=== PATIENT | male | born 1955 | race Caucasian/White ===

== ENCOUNTER 2016-12-10 06:07 | Inpatient (IN) | payer OTHER ==
[2016-12-09 13:03] VITALS: BMI 20.9
[2016-12-10] MEDS ORDERED: INSULIN (NOVOLOG) ASPART 100 UNITS/ML 10ML VIAL SQ ONE (07:10)
[2016-12-10] MEDS ORDERED: HEPARIN NA (PORCINE) 5,000 UNITS/ML 1ML VIAL ONE ×2 (07:42→10:35)
[2016-12-10] MEDS ORDERED: POVIDONE-IODINE OINTMENT 10% - 28.4 GM TUBE ONE (07:42)
[2016-12-10] MEDS ORDERED: MIDAZOLAM HCL 2 MG/2 ML SINGLE DOSE VIAL ONE (07:56)
[2016-12-10] MEDS ORDERED: ROCURONIUM BROMIDE 50 MG/5 ML VIAL ONE ×2 (07:56→08:53)
[2016-12-10] MEDS ORDERED: PROPOFOL 20 ML ONE ×2 (07:56→10:25)
[2016-12-10] MEDS ORDERED: ceFAZolin SODIUM 1 GM VIAL IVPB ONE (08:20)
[2016-12-10] MEDS ORDERED: ceFAZolin SODIUM 1 GM VIAL ONE (08:43)
[2016-12-10] MEDS ORDERED: ONDANSETRON 4 MG/2 ML VIAL IVPUSH PRN (09:49)
[2016-12-10] MEDS ORDERED: LACTATED RINGERS SOLUTION 1,000 ML IV SCH (10:00)
[2016-12-10] MEDS ORDERED: GLYCOPYRROLATE 0.2 MG/1 ML VIAL ONE (10:35)
[2016-12-10] MEDS ORDERED: LIDOCAINE HCL 2% (20ML MULTI-DOSE VIAL) NR ONE (10:35)
[2016-12-10] MEDS ORDERED: NEOSTIGMINE METHYLSULFATE 0.5 MG/ML - 10 ML MDV ONE (10:35)
[2016-12-10] MEDS ORDERED: LIDOCAINE HCL 2% JELLY (5 ML/TUBE) ONE (10:35)
--- NOTE | 2016-12-10 10:52 | HP ---
Admitting History and Physical - Admission Chief Complaint: left carotid stenosis - Smoking History Smoking history: Current every day smoker Have you smoked in the past 12 months: Yes Aproximately how many cigarettes per day: 20 - Alcohol/Substance Use Hx Alcohol Use: Yes (SOCIALLY) Home Medications - Allergies Allergies/Adverse Reactions: Allergies Allergy/AdvReac Type Severity Reaction Status Date / Time No Known Allergies Allergy Verified 12/10/16 06:40 - Home Medications Home Medications: Ambulatory Orders Omeprazole [Prilosec] 40 mg PO DAILY 07/04/15 Tamsulosin HCl [Flomax] 0.4 mg PO DAILY 07/04/15 Finasteride [Proscar] 5 mg PO HS 02/15/16 Zolpidem Tartrate [Ambien] 10 mg PO HS 02/15/16 Aspirin Coated [Ecotrin -] 81 mg PO DAILY 12/09/16 Atorvastatin Ca [Lipitor] 80 mg PO HS 12/09/16 Enalapril Maleate [Vasotec] 20 mg PO HS 12/09/16 Gabapentin 300 mg PO TID 12/09/16 Ibuprofen 800 mg PO PRN PRN 12/09/16 Insulin Detemir [Levemir Flextouch] 20 unit SQ HS 12/09/16 Metformin HCl [Metformin HCl ER] 1,000 mg PO BID 12/09/16 Physical Examination Vital Signs: Vital Signs Temperature 98.0 F 12/10/16 06:43 Pulse Rate 82 12/10/16 06:43 Respiratory Rate 18 12/10/16 06:43 Blood Pressure 117/80 12/10/16 06:43 O2 Sat by Pulse Oximetry (%) 97 12/10/16 06:43 Constitutional: Yes: Well Nourished Eyes: Yes: WNL HENT: Yes: WNL Neck: Yes: WNL Cardiovascular: Yes: WNL Respiratory: Yes: WNL Gastrointestinal: Yes: WNL Musculoskeletal: Yes: WNL Extremities: Yes: WNL Edema: No Peripheral Pulses WNL: Yes Integumentary: Yes: WNL Neurological: Yes: WNL ...Motor Strength: WNL Psychiatric: Yes: WNL Assessment/Plan Left carotid stenosis 80% 1. For left carotidendarterectomy
--- NOTE | 2016-12-10 10:54 | OP ---
Operative Note - Note: Operative Date: 12/10/16 Pre-Operative Diagnosis: Left carotid stenosis Operation: Left CEA Findings: 80% percent stenosis of left CEA Post-Operative Diagnosis: Same as Pre-op Surgeon: Joe Tamez Dispatch Specialist: Sai Lizama Anesthesia: General Estimated Blood Loss (mls): 50 Operative Report Dictated: Yes
[2016-12-10] MEDS: CLOPIDOGREL BISULFATE 75 MG TABLET (FP) PO SCH (12:35)
--- NOTE | 2016-12-10 14:45 | OP ---
DATE OF OPERATION: 12/10/2016 PREOPERATIVE DIAGNOSIS: Left carotid stenosis. POSTOPERATIVE DIAGNOSIS: Left carotid stenosis. PROCEDURE: Left carotid endarterectomy. SURGEON: Joe Fernandez DO ANESTHESIA: General. BLOOD LOSS: 50 mL The patient is a 60-year-old male who had a preoperative ultrasound that showed an 80% stenosis in the left carotid artery. He then went to see his medical doctor and got medical and cardiology clearance because the patient needed a left carotid endarterectomy. Patient was asymptomatic and did not have any signs of amaurosis fugax and was medically optimized prior to the procedure. Patient is a [id number]-day smoker which is why he has the carotid stenosis, and he has been weaning down his cigarette use. Patient came into Ambulatory Surgery. Patient was consented for the procedure, understanding all risks, benefits, and alternatives. He was then taken to the operating room. Anesthesia then administered general anesthesia to the patient. We then placed a neck roll behind the neck, and the neck was hyperextended and turned to the right. Under ultrasound guidance, we did visualize the carotid bulb and the bifurcation, and that was marked the superior border of the sternocleidomastoid, and a 5-cm incision was then drawn through there. We then went ahead and prepped and draped the neck in sterile surgical manner. We then went ahead and used a number-15 blade, and a 7-cm incision was drawn. A separate incision was made along the anterior border of the sternocleidomastoid. Bovie electrocautery used to control hemostasis. Using Bovie electrocautery, we were particular to go through the platysma and then the subcutaneous tissue. We then took our Weitlaner clamp and placed the sternocleidomastoid posteriorly. We then went ahead and using Metzenbaum scissors, we went through all the subcutaneous tissue and got down to the common carotid artery. Once we got down to the common carotid artery, we stayed on top of the artery and dissected out the common carotid artery. We made sure that we did not enter the vagus nerve. We then dissected anteriorly and posteriorly, and vessel loop was placed around the common carotid artery. We then went ahead and went superiorly and dissected out the bulb of the carotid artery, and we were able to dissect out our external carotid artery anteriorly and posteriorly. We visualized our first branch which was the superior thyroid artery. We then went ahead and placed our vessel loop around the external carotid artery and the superior artery. We then went ahead and dissected out our internal carotid artery, making sure that we did not injure the hypoglossal nerve. Internal carotid artery was dissected anteriorly and posteriorly, and vessel loop was placed distally. Next, 5000 units of heparin were then administered to the patient. After 3 minutes of being on IV heparin, we went ahead and clamped the ICA first, then the common carotid, then the ECA. We then went ahead and took a number-11 blade and made an arteriotomy on the common carotid artery, and then, using Hinds scissors, we were able to take that incision across the bulb and into the ICA. Once we did that, we used a [place] elevator and the plaque was removed and sent to Pathology. We made sure that there were no flaps. We were able to take all of the debris and plaque out all the way as high as we could. We then went ahead and irrigated the wound cautiously. We then went ahead and used a 6-0 Prolene double arm and tacked down any area of plaque that was loose. Prior to taking out the plaque, we had opened our ICA, and there was good pulsatile bleeding. So, there was no need for a shunt. We then went ahead and used an 8 x 75 Vascutek patch and using 6-0 Prolene double-arm, we went ahead and went outside-in on the graft and inside-out on the artery and we were able to tie down the patch. We then went ahead, and we cut the patch to size and was sutured the patch to the artery going outside in on the patch and inside-out on the artery in 4 quadrants. Once all 4 quadrants were done, we tied the 10 sutures on each side of the artery. Once the patch was tied down, we then opened our internal carotid artery, and there was no bleeding found. We then clamped the internal carotid artery. We then opened the external carotid artery and then opened the common carotid artery. Once that was performed and it was safe, we then opened the internal carotid artery. There was minimal bleeding. The wound was well irrigated. Surgicel was placed. WE then made sure that there was no bleeding from the subcutaneous muscle. Once there was no more bleeding, we then went ahead and used our Doppler, and we Dopplered the common carotid, the external carotid, and the internal carotid, and there was good signals, that were biphasic to triphasic. We then went ahead and used 3-0 Vicryl and the platysma also was approximated in an interrupted manner and the skin was closed with skin viry. The area was wet and dried; 4 x 4 Tegaderms were placed. The patient tolerated the procedure with no complication. Patient transferred back in stable condition. Once patient was extubated, patient was able to move all 4 limbs with no issues. Patient did not have any neurological deficits. The patient stuck out his tongue and the tongue was nice and straight. There was no damage to the hypoglossal nerve. The patient was then transferred to PACU in stable condition. JOE FERNANDEZ DO [id number]
[2016-12-10] MEDS: GABAPENTIN 300 MG CAPSULE (FP) PO SCH ×2 (15:20→21:05)
--- NOTE | 2016-12-10 17:01 | HP ---
Admitting History and Physical - Primary Care Physician PCP: Augustine Douglas - Admission Chief Complaint: S/P LEFT ENDARCTOMY History of Present Illness: 60 Y/O MALE SMOKER WITH HTN/LIPIDEMIA/DM WITH LEFT CAROTID ARTERY OCCLUSION 80% NEEDING VASCULAR SURGERY FOR ENDARTECTOMY History Source: Patient, Medical Record - Smoking History Smoking history: Current every day smoker Have you smoked in the past 12 months: Yes Aproximately how many cigarettes per day: 20 - Alcohol/Substance Use Hx Alcohol Use: Yes (SOCIALLY) Home Medications - Allergies Allergies/Adverse Reactions: Allergies Allergy/AdvReac Type Severity Reaction Status Date / Time No Known Allergies Allergy Verified 12/10/16 06:40 - Home Medications Home Medications: Ambulatory Orders Omeprazole [Prilosec] 40 mg PO DAILY 07/04/15 Tamsulosin HCl [Flomax] 0.4 mg PO DAILY 07/04/15 Finasteride [Proscar] 5 mg PO HS 02/15/16 Zolpidem Tartrate [Ambien] 10 mg PO HS 02/15/16 Aspirin Coated [Ecotrin -] 81 mg PO DAILY 12/09/16 Atorvastatin Ca [Lipitor] 80 mg PO HS 12/09/16 Enalapril Maleate [Vasotec] 20 mg PO HS 12/09/16 Gabapentin 300 mg PO TID 12/09/16 Ibuprofen 800 mg PO PRN PRN 12/09/16 Insulin Detemir [Levemir Flextouch] 20 unit SQ HS 12/09/16 Metformin HCl [Metformin HCl ER] 1,000 mg PO BID 12/09/16 Review of Systems - Review of Systems Constitutional: reports: No Symptoms Eyes: reports: No Symptoms HENT: reports: Throat Pain Neck: reports: No Symptoms Cardiovascular: reports: No Symptoms Respiratory: reports: Cough Gastrointestinal: reports: No Symptoms Genitourinary: reports: No Symptoms Musculoskeletal: reports: No Symptoms Integumentary: reports: No Symptoms Neurological: reports: No Symptoms Endocrine: reports: No Symptoms Hematology/Lymphatic: reports: No Symptoms Psychiatric: reports: No Symptoms Physical Examination Vital Signs: Vital Signs Temperature 99.4 F 12/10/16 16:00 Pulse Rate 82 12/10/16 16:00 Respiratory Rate 20 12/10/16 16:00 Blood Pressure 134/82 12/10/16 16:00 O2 Sat by Pulse Oximetry (%) 100 12/10/16 15:47 Constitutional: Yes: Moderate Distress Eyes: Yes: WNL HENT: Yes: WNL Neck: Yes: WNL Cardiovascular: Yes: WNL Respiratory: Yes: WNL Gastrointestinal: Yes: WNL Renal/: Yes: WNL Musculoskeletal: Yes: WNL Extremities: Yes: WNL Edema: No Peripheral Pulses WNL: Yes Integumentary: Yes: WNL Wound/Incision: Yes: Clean/Dry Neurological: Yes: WNL ...Motor Strength: WNL Psychiatric: Yes: WNL Problem List - Problems (1) H/O endarterectomy Code(s): Z98.890 - OTHER SPECIFIED POSTPROCEDURAL STATES (2) DMII (diabetes mellitus, type 2) Code(s): E11.9 - TYPE 2 DIABETES MELLITUS WITHOUT COMPLICATIONS Qualifiers: Diabetes mellitus complication status: with circulatory complication (3) Lipidemia Code(s): E78.5 - HYPERLIPIDEMIA, UNSPECIFIED Qualifiers: Hyperlipidemia type: mixed hyperlipidemia Qualified Code(s): E78.2 - Mixed hyperlipidemia (4) HTN (hypertension) Code(s): I10 - ESSENTIAL (PRIMARY) HYPERTENSION Qualifiers: Hypertension type: essential hypertension Qualified Code(s): I10 - Essential (primary) hypertension (5) Smoking hx Code(s): Z87.891 - PERSONAL HISTORY OF NICOTINE DEPENDENCE Assessment/Plan MONITOR IN ICU LIPID PANEL AND STATIN THERAPY A1C TIGHT GLUCOS CONTROL LABS REVIEWED SMOKING CESSATION LOZINGERS FOR THROAT PAIN POST EXTUBATION LIKELY
[2016-12-10] MEDS ORDERED: BENZOCAINE/MENTH/CETYLPYRD CL 1 EACH LOZENGE MM PRN (17:02)
--- NOTE | 2016-12-10 19:00 | PN ---
Progress Note (short form) - Note Progress Note: Patient seen and examined in the ICU S/p left carotid endarterectomy. Patient was eating dinner with no complaints. Pain controlled. Neuro: A&ox3 Pulmonary: lungs clear to auscultation b/l, no increased work of breathing Cardio: RRR s1,s2 heard no murmurs, gallops, rubs heard Abdominal: soft, nontender, nondistended will monitor in ICU cepachol for sore throat
[2016-12-10] MEDS ORDERED: ENALAPRIL MALEATE 10 MG TABLET (FP) PO ONE (20:15)
--- NOTE | 2016-12-10 20:35 | CONSULT ---
Consult - text type - Consultation Consultation Note: PULM/CCM Pt seen and examined in ICU CC: For endarterectomy HPI: Mr Chavez is a 60 y/o man, 2pack a day smoker with hx of HTN, HL, DM presented today for scheduled L carotid endartectomy, uneventful OR course, extubated in PACU. Admitted to PACU for overnight observation. In ICU pt extubated, pain largely controlled, afebrile, no distress. Hypertensive---> vasotec home dose given. PMHX: HTN HL DM PSH: hernia repair last year Soc: works as entertainer, 2 pack/day smoker x 5 years (19 abstinence prior), no illicits Fam: Father CAD, Mother Fall, Sister Lung CA. Ambulatory Orders Omeprazole [Prilosec] 40 mg PO DAILY 07/04/15 Tamsulosin HCl [Flomax] 0.4 mg PO DAILY 07/04/15 Finasteride [Proscar] 5 mg PO HS 02/15/16 Zolpidem Tartrate [Ambien] 10 mg PO HS 02/15/16 Aspirin Coated [Ecotrin -] 81 mg PO DAILY 12/09/16 Atorvastatin Ca [Lipitor] 80 mg PO HS 12/09/16 Enalapril Maleate [Vasotec] 20 mg PO HS 12/09/16 Gabapentin 300 mg PO TID 12/09/16 Ibuprofen 800 mg PO PRN PRN 12/09/16 Insulin Detemir [Levemir Flextouch] 20 unit SQ HS 12/09/16 Metformin HCl [Metformin HCl ER] 1,000 mg PO BID 12/09/16 Current Medications Aspirin (Ecotrin -) 81 mg PO DAILY [facility] Atorvastatin Calcium (Lipitor -) 80 mg PO HS [facility] Benzocaine/Menthol (Cepacol Lozenge -) 1 each MM Q2H PRN PRN Reason: SORE THROAT Stop: 12/11/16 03:03 Last Admin: 12/10/16 19:50 Dose: 1 each Clopidogrel Bisulfate (Plavix -) 75 mg PO DAILY [facility] Last Admin: 12/10/16 12:35 Dose: 75 mg Enalapril Maleate (Vasotec -) 20 mg PO HS [facility] Fentanyl (Sublimaze Injection -) 50 mcg IVPUSH [id number] PRN PRN Reason: PAIN Stop: 12/13/16 09:50 Last Admin: 12/10/16 12:45 Dose: 25 mcg Finasteride (Proscar -) 5 mg PO DAILY [facility] Gabapentin (Neurontin -) 300 mg PO TID [facility] Last Admin: 12/10/16 15:20 Dose: 300 mg Insulin Aspart (Novolog Vial Sliding Scale -) 1 vial SQ ACHS [facility] PRN Reason: Protocol Insulin Detemir (Levemir Vial) 20 units SQ HS [facility] Metformin HCl (Glucophage -) 1,000 mg PO BID@0700,1630 [facility] Nicotine (Nicoderm Patch -) 21 mg TD DAILY [facility] Tamsulosin HCl (Flomax -) 0.4 mg PO DAILY@0830 [facility] Wellbutrin 150mg BID Vital Signs Temp 99.4 F 12/10/16 16:00 Pulse 87 12/10/16 20:00 Resp 16 12/10/16 20:00 BP 153/86 12/10/16 20:00 Pulse Ox 100 12/10/16 15:47 Intake & Output 12/09/16 12/10/16 12/10/16 23:59 11:59 23:59 Intake Total 1700 150 Output Total 50 100 Balance 1650 50 Weight 58.967 kg Intake: IV 1700 150 Lactated Ringers Solution 150 1,000 ml @ 75 mls/hr IV ASDIR [facility] Rx#:[id number] Output: Urine 100 Void 100 Estimated Blood Loss 50 Other: Bowel Movement No Height 5 ft 6 in Body Mass Index (BMI) 20.9 Weight Measurement Method Stated by Patient PE: -awake alert, without acute complaint HEENT: surgical site dressed, minimal swelling, PERRL PULM: clear anterior CV: RRR , no mr/r/g ABD: soft, NT EXT: w/w/p Neuro: non focal, intact A/ 60 y/o man POD #0 after L CEA overnight observation P/ -pain control--low dose dilaudid now, transition to PO in am -BP management, restarting vasotec now -restart other meds in am -nicotine patch---wants to quite smoking, restart wellbutrin. -fingersticks -regular diet -to medsurg in am if stable Sonny Wiley [facility] [id number]
[2016-12-10] MEDS ORDERED: HYDROmorphone HCL CARPU-JECT 1 MG/1 ML DISP.SYRIN IVPUSH ONE (20:36)
[2016-12-10] MEDS ORDERED: HYDROmorphone HCL CARPU-JECT 1 MG/1 ML DISP.SYRIN ONE (20:37)
[2016-12-10] MEDS: NICOTINE 21 MG/24 HOURS TOPICAL PATCH TD SCH (20:49)
[2016-12-10] MEDS: INSULIN SLIDING SCALE (NOVOLOG) 1 VIAL SQ SCH (21:10)
[2016-12-10] MEDS ORDERED: INSULIN DETEMIR 100 UNITS/ML MDV SQ SCH (22:00)
[2016-12-10] MEDS ORDERED: ATORVASTATIN CA 80 MG TABLET (FP) PO SCH (22:00)
[2016-12-11] MEDS: oxyCODONE HCL 5 MG TABLET PO PRN ×2 (05:31→15:52)
[2016-12-11] MEDS: ACETAMINOPHEN 325 MG TABLET (FP) PO PRN ×2 (05:31→15:52)
[2016-12-11] MEDS: GABAPENTIN 300 MG CAPSULE (FP) PO SCH ×3 (05:31→22:38)
[2016-12-11] MEDS: INSULIN SLIDING SCALE (NOVOLOG) 1 VIAL SQ SCH ×4 (06:10→22:39)
[2016-12-11 06:33] LABS: MCHC 34.5 g/dl (32.0-35.9); MEAN CELL VOLUME 89.8 fl (80-96); MEAN PLT VOLUME 9.2 fl (7.5-11.1); PLATELET COUNT 220 K/MM3 (134-434); RDW 13.6 % (11.9-15.9); WHITE BLOOD COUNT 16.3 K/mm3 (4.0-10.0)
[2016-12-11] MEDS: metFORMIN HCL 500 MG TABLET (FP) PO SCH ×2 (06:42→18:13)
[2016-12-11 06:57] LABS: ALBUMIN 3.3 g/dl (3.4-5.0); ANION GAP 6 (8-16); CALCIUM 8.6 mg/dL (8.5-10.1); CHOLESTEROL 96 mg/dL (50-200); CO2 29 mmol/L (21-32); CREATININE 0.7 mg/dL (0.7-1.3); GLUCOSE,RANDOM 108 mg/dL (74-106); MAGNESIUM 1.5 mg/dL (1.8-2.4); PHOSPHOROUS 3.3 mg/dL (2.5-4.9); SGOT/AST 6 U/L (15-37); SGPT/ALT 19 U/L (12-78); TOT PROT 6.1 g/dl (6.4-8.2)
[2016-12-11 06:59] LABS: ALK PHOS 77 U/L (45-117); BILIRUBIN,TOTAL 0.4 mg/dL (0.2-1.0); LDL CHOLESTEROL (ONLY SJRH) 38 mg/dL (5-100)
[2016-12-11] MEDS ORDERED: TAMSULOSIN HCL 0.4 MG CAP.ER.24H (FP) PO SCH (08:30)
[2016-12-11] MEDS ORDERED: PT OWN MED DRAWER 7, Y5N ONE ×2 (09:02→17:38)
[2016-12-11] MEDS: NICOTINE 21 MG/24 HOURS TOPICAL PATCH TD SCH (09:14)
[2016-12-11] MEDS: CLOPIDOGREL BISULFATE 75 MG TABLET (FP) PO SCH (09:14)
--- NOTE | 2016-12-11 09:31 | PN ---
Progress Note (short form) - Note Progress Note: Vascular Surgery S/P Left CEA [place]ing removed. Staple line - clean , dry and intact. Cont plavix Will need to go home on plavix. Can transfer to floor Joe Tamez DO
--- NOTE | 2016-12-11 09:36 | PN ---
Teaching Attending Note Name of Resident: Charles Baptiste ATTENDING PHYSICIAN STATEMENT I saw and evaluated the patient. I reviewed the resident's note and discussed the case with the resident. I agree with the resident's findings and plan as documented. SUBJECTIVE: Reports some sore throat. No or SOB. Some minimal discomfort at the surgical site. Intake & Output 12/08/16 12/09/16 12/10/16 12/11/16 23:59 23:59 23:59 23:59 Intake Total 2050 300 Output Total 1150 1300 Balance 900 -1000 Weight 130 lb 130 lb 15.273 oz Last Vital Signs Temp Pulse Resp BP Pulse Ox 99.4 F 91 H 18 124/77 96 12/11/16 06:00 12/11/16 06:38 12/11/16 06:00 12/11/16 06:00 12/11/16 06:38 Active Medications Acetaminophen (Tylenol -) 325 mg PO Q4H PRN PRN Reason: PAIN LEVEL 1-5 Stop: 12/13/16 20:39 Last Admin: 12/11/16 05:31 Dose: 325 mg Aspirin (Ecotrin -) 81 mg PO DAILY [facility] Last Admin: 12/11/16 09:14 Dose: 81 mg Atorvastatin Calcium (Lipitor -) 80 mg PO HS [facility] Last Admin: 12/10/16 21:05 Dose: 80 mg Clopidogrel Bisulfate (Plavix -) 75 mg PO DAILY [facility] Last Admin: 12/11/16 09:14 Dose: 75 mg Enalapril Maleate (Vasotec -) 20 mg PO HS [facility] Fentanyl (Sublimaze Injection -) 50 mcg IVPUSH [id number] PRN PRN Reason: PAIN Stop: 12/13/16 09:50 Last Admin: 12/10/16 12:45 Dose: 25 mcg Finasteride (Proscar -) 5 mg PO DAILY [facility] Gabapentin (Neurontin -) 300 mg PO TID [facility] Last Admin: 12/11/16 05:31 Dose: 300 mg Insulin Aspart (Novolog Vial Sliding Scale -) 1 vial SQ [facility] PRN Reason: Protocol Last Admin: 12/11/16 06:10 Dose: Not Given Insulin Detemir (Levemir Vial) 20 units SQ HS [facility] Last Admin: 12/10/16 21:09 Dose: 20 units Metformin HCl (Glucophage -) 1,000 mg PO BID@0700,1630 [facility] Last Admin: 12/11/16 06:42 Dose: 1,000 mg Nicotine (Nicoderm Patch -) 21 mg TD DAILY [facility] Last Admin: 12/11/16 09:14 Dose: 21 mg Oxycodone HCl (Roxicodone -) 5 mg PO Q4H PRN PRN Reason: PAIN LEVEL 1-5 Last Admin: 12/11/16 05:31 Dose: 5 mg Tamsulosin HCl (Flomax -) 0.4 mg PO DAILY@0830 [facility] Last Admin: 12/11/16 09:14 Dose: 0.4 mg PE: Gen: awake alert, without acute complaint HEENT: surgical site dressed, minimal swelling, PERRL PULM: clear anterior CV: RRR , no mr/r/g ABD: soft, NT EXT: w/w/p Neuro: non focal, intact IMP: POD # 1 Left CEA Active 2 to 3 PPD smoker PLAN: Incentive Spirometry O2 as needed Smoking cessation discussed Pain control Titrate BP meds Trial nicotine patch / Wellbutrin PO as tolerated Floor Dr Trinidad
[2016-12-11] MEDS ORDERED: ASPIRIN COATED 81 MG TABLET.EC PO SCH (10:00)
[2016-12-11] MEDS ORDERED: ENALAPRIL MALEATE 10 MG TABLET (FP) PO SCH ×3 (10:00→22:00)
[2016-12-11] MEDS ORDERED: FINASTERIDE 5 MG TABLET (FP) PO SCH (10:00)
--- NOTE | 2016-12-11 10:06 | PN ---
Physical Exam: SUBJECTIVE: Patient s/p L carotid endarterectomy. Seen and examined at bedside. Patient states that he has discomfort in his throat and coughs brown phlegm. A little discomfort near incision site. Denies chest pain, SOB, n/v/f/c. OBJECTIVE: Vital Signs Period Temp Pulse Resp BP Sys/Florez Pulse Ox Last 24 Hr 97 F-99.7 F 75-101 10-20 15-155/40-92 94-100 GENERAL: The patient is awake, alert, and fully oriented, in no acute distress. HEAD: Normal with no signs of trauma. EYES: PERRL, extraocular movements intact, sclera anicteric, conjunctiva clear. No ptosis. ENT: Ears normal, nares patent, oropharynx clear without exudates, moist mucous membranes. NECK: Trachea midline, full range of motion, supple, surgical dressing on L side of neck noted without drainage LUNGS: Breath sounds equal, clear to auscultation bilaterally, no wheezes, no crackles, no accessory muscle use. HEART: Regular rate and rhythm, S1, S2 without murmur, rub or gallop. ABDOMEN: Soft, nontender, nondistended, normoactive bowel sounds, no guarding, no rebound, no hepatosplenomegaly, no masses. EXTREMITIES: 2+ pulses, warm, well-perfused, no edema. NEUROLOGICAL: Cranial nerves II through XII grossly intact. Normal speech, gait not observed. PSYCH: Normal mood, normal affect. SKIN: Warm, dry, normal turgor, no rashes or lesions noted Laboratory Results - last 24 hr 12/10/16 12/11/16 12/11/16 21:08 05:20 05:20 WBC 16.3 H RBC 3.98 L Hgb 12.3 D Hct 35.7 D MCV 89.8 MCH 31.0 MCHC 34.5 RDW 13.6 Plt Count 220 D MPV 9.2 Sodium 139 Potassium 3.8 Chloride 104 Carbon Dioxide 29 D Anion Gap 6 L BUN 11 D Creatinine 0.7 D Creat Clearance w eGFR > 60 POC Glucometer [phone] Random Glucose 108 H D Hemoglobin A1c % Calcium 8.6 Phosphorus 3.3 Magnesium 1.5 L Total Bilirubin 0.4 AST 6 L D ALT 19 D Alkaline Phosphatase 77 Total Protein 6.1 L Albumin 3.3 L Triglycerides 137 Cholesterol 96 Total LDL Cholesterol 38 HDL Cholesterol 38 L 08/16/17 08/16/17 05:20 05:27 WBC RBC Hgb Hct MCV MCH MCHC RDW Plt Count MPV Sodium Potassium Chloride Carbon Dioxide Anion Gap BUN Creatinine Creat Clearance w eGFR POC Glucometer [phone] Random Glucose Hemoglobin A1c % 9.1 H Calcium Phosphorus Magnesium Total Bilirubin AST ALT Alkaline Phosphatase Total Protein Albumin Triglycerides Cholesterol Total LDL Cholesterol HDL Cholesterol Active Medications Generic Name Dose Route Start Last Admin Trade Name Freq PRN Reason Stop Dose Admin Acetaminophen 325 mg 12/10/16 20:40 12/11/16 05:31 Tylenol - PO 12/13/16 20:39 325 mg Q4H PRN Administration PAIN LEVEL 1-5 Aspirin 81 mg 12/11/16 10:00 12/11/16 09:14 Ecotrin - PO 81 mg DAILY [facility] Administration Atorvastatin Calcium 80 mg 12/10/16 22:00 12/10/16 21:05 Lipitor - PO 80 mg HS [facility] Administration Clopidogrel Bisulfate 75 mg 12/10/16 14:00 12/11/16 09:14 Plavix - PO 75 mg DAILY [facility] Administration Enalapril Maleate 20 mg 12/11/16 22:00 Vasotec - PO HS [facility] Fentanyl 50 mcg 12/10/16 09:49 12/10/16 12:45 Sublimaze Injection - IVPUSH 12/13/16 09:50 25 mcg [id number] PRN Administration PAIN Finasteride 5 mg 12/11/16 10:00 Proscar - PO DAILY [facility] Gabapentin 300 mg 12/10/16 14:00 12/11/16 05:31 Neurontin - PO 300 mg TID [facility] Administration Insulin Aspart 1 vial 12/10/16 22:00 12/11/16 06:10 Novolog Vial Sliding Scale - SQ Not Given ACHS [facility] Protocol Insulin Detemir 20 units 12/10/16 22:00 12/10/16 21:09 Levemir Vial SQ 20 units HS [facility] Administration Metformin HCl 1,000 mg 12/11/16 07:00 12/11/16 06:42 Glucophage - PO 1,000 mg BID@0700,1630 [facility] Administration Nicotine 21 mg 12/10/16 19:45 12/11/16 09:14 Nicoderm Patch - TD 21 mg DAILY [facility] Administration Oxycodone HCl 5 mg 12/10/16 20:40 12/11/16 05:31 Roxicodone - PO 5 mg Q4H PRN Administration PAIN LEVEL 1-5 Tamsulosin HCl 0.4 mg 12/11/16 08:30 12/11/16 09:14 Flomax - PO 0.4 mg DAILY@0830 [facility] Administration ASSESSMENT/PLAN: 60yr old male pmh HTN, HLD, DM s/p L carotid endarterectomy w/o complications. Extubated in ICU. Neuro: no acute complaints -continue gabapentin -fentanyl and tylenol for pain -nicotine patch for smoking QD Cardiovascular: hx of hypertension and smoking -continue vasotec for htn -continue aspirin -continue atorvostatin -continue clopidogrel Pulmonary: no acute issues -O2 via NC as needed Endocrine: hx of DM -continue insulin aspart and detemir -continue metformin Proph: -cont SCDs Dispo: -tx to med surg Problem List - Problems (1) DMII (diabetes mellitus, type 2) Code(s): E11.9 - TYPE 2 DIABETES MELLITUS WITHOUT COMPLICATIONS Qualifiers: Diabetes mellitus complication status: with circulatory complication (2) H/O endarterectomy Code(s): Z98.890 - OTHER SPECIFIED POSTPROCEDURAL STATES (3) HTN (hypertension) Code(s): I10 - ESSENTIAL (PRIMARY) HYPERTENSION Qualifiers: Hypertension type: essential hypertension Qualified Code(s): I10 - Essential (primary) hypertension (4) Smoking hx Code(s): Z87.891 - PERSONAL HISTORY OF NICOTINE DEPENDENCE Visit type - Emergency Visit Emergency Visit: No - New Patient This patient is new to me today: Yes Date on this admission: 12/11/16 - Critical Care Critical Care patient: Yes Total Critical Care Time (in minutes): 20
--- NOTE | 2016-12-11 12:05 | PN ---
Progress Note, Physician Chief Complaint: ASLEEP COMFORTABLE NAD - Current Medication List Current Medications: Active Medications Acetaminophen (Tylenol -) 325 mg PO Q4H PRN PRN Reason: PAIN LEVEL 1-5 Stop: 12/13/16 20:39 Last Admin: 12/11/16 05:31 Dose: 325 mg Aspirin (Ecotrin -) 81 mg PO DAILY REPLACED BY [facility] Last Admin: 12/11/16 09:14 Dose: 81 mg Atorvastatin Calcium (Lipitor -) 80 mg PO [facility] Last Admin: 12/10/16 21:05 Dose: 80 mg Clopidogrel Bisulfate (Plavix -) 75 mg PO DAILY REPLACED BY [facility] Last Admin: 12/11/16 09:14 Dose: 75 mg Enalapril Maleate (Vasotec -) 20 mg PO [facility] Fentanyl (Sublimaze Injection -) 50 mcg IVPUSH [id number] PRN PRN Reason: PAIN Stop: 12/13/16 09:50 Last Admin: 12/10/16 12:45 Dose: 25 mcg Finasteride (Proscar -) 5 mg PO DAILY REPLACED BY [facility] Gabapentin (Neurontin -) 300 mg PO TID REPLACED BY [facility] Last Admin: 12/11/16 05:31 Dose: 300 mg Insulin Aspart (Novolog Vial Sliding Scale -) 1 vial SQ [facility] PRN Reason: Protocol Last Admin: 12/11/16 06:10 Dose: Not Given Insulin Detemir (Levemir Vial) 20 units SQ [facility] Last Admin: 12/10/16 21:09 Dose: 20 units Metformin HCl (Glucophage -) 1,000 mg PO BID@0700,1630 REPLACED BY [facility] Last Admin: 12/11/16 06:42 Dose: 1,000 mg Nicotine (Nicoderm Patch -) 21 mg TD DAILY REPLACED BY [facility] Last Admin: 12/11/16 09:14 Dose: 21 mg Oxycodone HCl (Roxicodone -) 5 mg PO Q4H PRN PRN Reason: PAIN LEVEL 1-5 Last Admin: 12/11/16 05:31 Dose: 5 mg Tamsulosin HCl (Flomax -) 0.4 mg PO DAILY@0830 REPLACED BY [facility] Last Admin: 12/11/16 09:14 Dose: 0.4 mg - Objective Vital Signs: Vital Signs Temperature 99.1 F 12/11/16 10:00 Pulse Rate 90 12/11/16 10:00 Respiratory Rate 16 12/11/16 10:00 Blood Pressure 108/80 12/11/16 10:00 O2 Sat by Pulse Oximetry (%) 96 12/11/16 09:00 Constitutional: Yes: Mild Distress Eyes: Yes: WNL HENT: Yes: WNL, Other (LEFT CAROTID ELYSE) Neck: Yes: WNL Cardiovascular: Yes: WNL Respiratory: Yes: WNL Gastrointestinal: Yes: WNL Genitourinary: Yes: WNL Musculoskeletal: Yes: WNL Extremities: Yes: WNL Edema: No Peripheral Pulses WNL: Yes Integumentary: Yes: WNL Wound/Incision: Yes: Clean/Dry, Elyse Intact Neurological: Yes: WNL ...Motor Strength: WNL Psychiatric: Yes: WNL Labs: CBC, BMP 12/11/16 05:20 12/11/16 05:20 Problem List - Problems (1) H/O endarterectomy Code(s): Z98.890 - OTHER SPECIFIED POSTPROCEDURAL STATES (2) DMII (diabetes mellitus, type 2) Code(s): E11.9 - TYPE 2 DIABETES MELLITUS WITHOUT COMPLICATIONS Qualifiers: Diabetes mellitus complication status: with circulatory complication (3) Lipidemia Code(s): E78.5 - HYPERLIPIDEMIA, UNSPECIFIED Qualifiers: Hyperlipidemia type: mixed hyperlipidemia Qualified Code(s): E78.2 - Mixed hyperlipidemia (4) HTN (hypertension) Code(s): I10 - ESSENTIAL (PRIMARY) HYPERTENSION Qualifiers: Hypertension type: essential hypertension Qualified Code(s): I10 - Essential (primary) hypertension (5) Smoking hx Code(s): Z87.891 - PERSONAL HISTORY OF NICOTINE DEPENDENCE Assessment/Plan A1C 9.0 WILL NEED ENDOCRINE CONSULT TIGHT GLUCOSE CONTROL PT EVAL OOB TO CHAIR PAIN CONTROL
--- NOTE | 2016-12-11 13:09 | PN ---
Progress Note (short form) - Note Progress Note: Anesthesia postop note 60 y/o M s/p GA for left cea POD#1, vss, aaox3, no complaints No anesthesia complications.
--- NOTE | 2016-12-11 14:55 | PATH ---
Surgical Pathology Report Patient Name: BIB VERONICA Med. Rec. #: [id number] /Age/Gender: 1955 (Age: 60) / M Account: [id number] Location: [facility] Taken: 12/10/2016 Received: 12/10/2016 Reported: 12/11/2016 Physicians: Joe Tamez Specimen(s) Received LEFT CAROTID PLAQUE Clinical History Left carotid stenosis Final Diagnosis PLAQUE, LEFT CAROTID ARTERY, ENDARTERECTOMY: CALCIFIED INTIMAL ATHEROSCLEROTIC PLAQUE. Electronically Signed Dayne Hicks M.D. Gross Description Received in formalin labeled "left carotid plaque" is a 1.8 x 1.5 x 0.2 cm portion of hercules-yellow plaque material. The specimen is serially sectioned and entirely submitted in one cassette. /12/10/201612/10/2016
[2016-12-11] MEDS ORDERED: INSULIN DETEMIR 100 UNITS/ML MDV SQ SCH (22:00)
[2016-12-11] MEDS ORDERED: ATORVASTATIN CA 80 MG TABLET (FP) PO SCH (22:00)
[2016-12-12] MEDS: ACETAMINOPHEN 325 MG TABLET (FP) PO PRN ×2 (06:21→13:22)
[2016-12-12] MEDS: oxyCODONE HCL 5 MG TABLET PO PRN ×2 (06:22→13:19)
[2016-12-12] MEDS: GABAPENTIN 300 MG CAPSULE (FP) PO SCH ×2 (06:23→13:19)
[2016-12-12] MEDS: INSULIN SLIDING SCALE (NOVOLOG) 1 VIAL SQ SCH ×2 (06:23→11:38)
[2016-12-12] MEDS ORDERED: metFORMIN HCL 500 MG TABLET (FP) PO SCH (07:00)
[2016-12-12 08:18] LABS: ANION GAP 6 (8-16); CALCIUM 8.8 mg/dL (8.5-10.1); CO2 28 mmol/L (21-32); CREATININE 0.7 mg/dL (0.7-1.3); GLUCOSE,RANDOM 213 mg/dL (74-106)
[2016-12-12 08:23] LABS: MCH 31.4 pg (25.7-33.7); MCHC 34.9 g/dl (32.0-35.9); MEAN PLT VOLUME 9.5 fl (7.5-11.1); PLATELET COUNT 214 K/MM3 (134-434); RDW 13.4 % (11.9-15.9); WHITE BLOOD COUNT 15.2 K/mm3 (4.0-10.0)
[2016-12-12] MEDS ORDERED: TAMSULOSIN HCL 0.4 MG CAP.ER.24H (FP) PO SCH (08:30)
[2016-12-12 09:31] VITALS: BP 105/72; PULSE 102; TEMP 98.2
[2016-12-12] MEDS ORDERED: ASPIRIN COATED 81 MG TABLET.EC PO SCH (10:00)
[2016-12-12] MEDS ORDERED: FINASTERIDE 5 MG TABLET (FP) PO SCH (10:00)
[2016-12-12] MEDS ORDERED: NICOTINE 21 MG/24 HOURS TOPICAL PATCH TD SCH (10:00)
[2016-12-12] MEDS ORDERED: CLOPIDOGREL BISULFATE 75 MG TABLET (FP) PO SCH (10:00)
--- NOTE | 2016-12-12 10:23 | DS ---
Physical Examination Vital Signs: Vital Signs Temperature 98.2 F 12/12/16 09:30 Pulse Rate 102 H 12/12/16 09:30 Respiratory Rate 18 12/12/16 09:30 Blood Pressure 105/72 12/12/16 09:30 O2 Sat by Pulse Oximetry (%) 98 12/11/16 21:00 Constitutional: Yes: No Distress Eyes: Yes: WNL HENT: Yes: Other Neck: Yes: Other (CLEAR LEFT SIDED WOUND SITE WITH ELYSE INTACT) Cardiovascular: Yes: WNL Respiratory: Yes: WNL Gastrointestinal: Yes: WNL Renal/: Yes: WNL Musculoskeletal: Yes: WNL Extremities: Yes: WNL Edema: No Peripheral Pulses WNL: Yes Integumentary: Yes: WNL Wound/Incision: Yes: Elyse Intact Neurological: Yes: WNL ...Motor Strength: WNL Psychiatric: Yes: WNL Labs: CBC, BMP 12/12/16 06:40 12/12/16 06:40 Discharge Summary Reason For Visit: LEFT CAROTID STENOSIS Current Active Problems DMII (diabetes mellitus, type 2) (Acute) H/O endarterectomy (Acute) HTN (hypertension) (Acute) Lipidemia (Acute) Smoking hx (Acute) Procedures: Principal: CAROTID ENDARCECTOMY Other Procedures: LABS/CX Hospital Course: ADMITTED FOR VASCULAR SURGERY 80% LEFT CAROTID ENDARCTEMY AND ADMITTED IN ICU FOR POST-OP OBSERVATION, TOLERATED WELL, CLEAN WOUND SITE, F/U OUTPATIENT Condition: Improved - Instructions Diet, Activity, Other Instructions: SEE KYE ESTRADA IN [address] CANALES IN 2 WEEKS LOW FAT/ADA/LOW SODIUM Disposition: HOME - Home Medications Comprehensive Discharge Medication List: Ambulatory Orders Omeprazole [Prilosec] 40 mg PO DAILY 07/04/15 Tamsulosin HCl [Flomax] 0.4 mg PO DAILY 07/04/15 Finasteride [Proscar] 5 mg PO HS 02/15/16 Zolpidem Tartrate [Ambien] 10 mg PO HS 02/15/16 Aspirin Coated [Ecotrin -] 81 mg PO DAILY 12/09/16 Atorvastatin Ca [Lipitor] 80 mg PO HS 12/09/16 Enalapril Maleate [Vasotec] 20 mg PO HS 12/09/16 Gabapentin 300 mg PO TID 12/09/16 Ibuprofen 800 mg PO PRN PRN 12/09/16 Insulin Detemir [Levemir Flextouch] 20 unit SQ HS 12/09/16 Metformin HCl [Metformin HCl ER] 1,000 mg PO BID 12/09/16
== END 2016-12-12 15:37 | disposition home or self-care (01) | DRG 39 ==
LOC: JASUSAT 06:07 → JSAMEDAYSX 10:55 → JICU 13:35 → J5S 12-11 18:34
PROVIDERS: ADMIT Surgery Vascular Surgery; ATTEND Family Medicine
PROC: 03CN0Z6 (ICD-10-PCS; 2016-12-10)
PROC: 03CL0Z6 (ICD-10-PCS; 2016-12-10)
PROC: 03CJ0Z6 (ICD-10-PCS; principal; 2016-12-10 08:00)
DX: I65.22 Occlusion and stenosis of left carotid artery (principal); E11.9 Type 2 diabetes mellitus without complications; I10 Essential (primary) hypertension; E78.5 Hyperlipidemia, unspecified; F17.210 Nicotine dependence, cigarettes, uncomplicated
CPT/HCPCS: 36415; 80048; 80053; 80061; 83036; 83721; 83735; 84100; 85027; 86850; 86900; 86901; 87040; 88304-TC; 94760; J1644

== ENCOUNTER 2020-08-02 18:12 | Inpatient (IN) | payer OTHER ==
[2020-08-02 18:23] VITALS: BMI 20.1
[2020-08-02 21:41] LABS: BASO % 0.2 % (0-2.0); EOS % 0.1 % (0-4.5); HEMATOCRIT 20.8 % (35.4-49); LYMPH % 1.9 % (8-40); MCH 28.2 pg (25.7-33.7); MCHC 30.7 g/dl (32.0-35.9); MEAN CELL VOLUME 91.8 fl (80-96); MEAN PLT VOLUME 9.1 fl (7.5-11.1); MONO % 2.3 % (3.8-10.2); NEUT % 95.5 % (42.8-82.8); PLATELET COUNT 580 K/MM3 (134-434); RBC 2.27 M/mm3 (4.00-5.60); RDW 19.1 % (11.9-15.9); WHITE BLOOD COUNT 26.1 K/mm3 (4.0-10.0)
[2020-08-02 21:43] LABS: HEMOGLOBIN 6.4 GM/dL (11.7-16.9)
[2020-08-02 21:53] LABS: PROTHROMBIN TIME (PATIENT) 12.1 SEC (9.7-13.0)
[2020-08-02 22:01] LABS: CHLORIDE 90 mmol/L (98-107); SODIUM 122 mmol/L (136-145)
[2020-08-02 22:03] LABS: ALBUMIN 2.2 g/dl (3.4-5.0); BLOOD UREA NITROGEN 74.5 mg/dL (7-18); CALCIUM 8.3 mg/dL (8.5-10.1); CO2 22 mmol/L (21-32)
[2020-08-02 22:06] LABS: SGPT/ALT 18 U/L (13-61)
[2020-08-02 22:07] LABS: CREATININE 2.1 mg/dL (0.55-1.3); SGOT/AST 8 U/L (15-37)
[2020-08-02 22:08] LABS: BILIRUBIN,TOTAL 0.3 mg/dL (0.2-1); TOT PROT 5.3 g/dl (6.4-8.2)
[2020-08-02 22:10] LABS: ALK PHOS 117 U/L (45-117)
[2020-08-02 22:18] LABS: ANION GAP 10 MMOL/L (8-16); GLUCOSE,RANDOM 818 mg/dL (74-106)
[2020-08-02] MEDS ORDERED: INSULIN REGULAR HUMAN 100 UNITS/ML *VIAL IVPUSH ONE ×2 (22:23→22:35)
[2020-08-02] MEDS ORDERED: CALCIUM GLUCONATE 10% - 1,000 MG/10 ML VIAL IVPUSH ONE (22:25)
[2020-08-02 22:39] LABS: URINE APPEARANCE CLEAR; URINE BILIRUBIN NEGATIVE (NEGATIVE); URINE COLOR YELLOW; URINE GLUCOSE (UA) 3+ (NEGATIVE); URINE KETONE TRACE (NEGATIVE); URINE LEUK ESTERASE NEGATIVE (NEGATIVE); URINE NITRITE NEGATIVE (NEGATIVE); URINE PROTEIN NEGATIVE (NEGATIVE); URINE UROBILINOGEN 0.2 mg/dL (0.2-1.0)
[2020-08-02 22:46] LABS: ANISOCYTOSIS 1+; MACROCYTOSIS 1+; PLATELET ESTIMATE INCREASED
[2020-08-02] MEDS ORDERED: CALCIUM GLUC IN NACL, ISO-OSM 1 GM/50 ML BAG IVPB ONE (22:53)
[2020-08-02] MEDS: SODIUM CHLORIDE 1,000 ML IV SCH (23:08)
[2020-08-02 23:09] LABS: VENOUS BASE EXCESS -2.4 mmol/L (-2-2); VENOUS O2 SATURATION 66.9 % (70-80); VENOUS PCO2 34.6 mmHg (38-52); VENOUS PH 7.419 (7.310-7.410)
[2020-08-02 23:14] LABS: N-TERMINAL BNP 200.9 pg/ml (5-125)
[2020-08-03 01:06] LABS: CHLORIDE 100 mmol/L (98-107); SODIUM 131 mmol/L (136-145)
[2020-08-03 01:08] LABS: CALCIUM 8.6 mg/dL (8.5-10.1)
[2020-08-03 01:09] LABS: ALBUMIN 1.9 g/dl (3.4-5.0); ANION GAP 9 MMOL/L (8-16); BLOOD UREA NITROGEN 72.2 mg/dL (7-18); CO2 21 mmol/L (21-32)
[2020-08-03 01:12] LABS: CREATININE 1.9 mg/dL (0.55-1.3); SGOT/AST 23 U/L (15-37); SGPT/ALT 17 U/L (13-61)
[2020-08-03 01:14] LABS: BILIRUBIN,TOTAL 0.2 mg/dL (0.2-1); TOT PROT 4.7 g/dl (6.4-8.2)
[2020-08-03 01:15] LABS: ALK PHOS 101 U/L (45-117)
[2020-08-03 01:23] LABS: GLUCOSE,RANDOM 483 mg/dL (74-106)
[2020-08-03] MEDS ORDERED: SODIUM POLYSTYRENE SULFONATE 15 GM/60 ML BOTTLE PO ONE (02:28)
[2020-08-03] MEDS ORDERED: INSULIN REGULAR HUMAN 100 UNITS/ML *VIAL IVPUSH ONE (05:05)
[2020-08-03] MEDS ORDERED: PIPERACILLIN/TAZOB 3.375 GM 3.375 GM/50 ML BAG IVPB ONE ×2 (05:10→09:43)
[2020-08-03] MEDS: PIPERACILLIN/TAZOB 3.375 GM 3.375 GM in DEXTROSE 5%-WATER - 50 ML IVPB SCH ×3 (05:11→13:19)
[2020-08-03] MEDS ORDERED: ASPIRIN 81 MG CHEWABLE TABLETS PO ONE (06:43)
[2020-08-03] MEDS ORDERED: ASPIRIN 81 MG CHEWABLE TABLETS ONE (06:47)
[2020-08-03 06:58] LABS: HEMATOCRIT 24.6 % (35.4-49); HEMOGLOBIN 8.2 GM/dL (11.7-16.9); MCH 29.3 pg (25.7-33.7); MCHC 33.3 g/dl (32.0-35.9); MEAN CELL VOLUME 88.1 fl (80-96); MEAN PLT VOLUME 8.5 fl (7.5-11.1); PLATELET COUNT 464 K/MM3 (134-434); RDW 16.8 % (11.9-15.9); WHITE BLOOD COUNT 21.7 K/mm3 (4.0-10.0)
[2020-08-03] MEDS ORDERED: INSULIN SLIDING SCALE (NOVOLOG) 1 VIAL SQ SCH (07:00)
[2020-08-03 07:15] LABS: CHLORIDE 104 mmol/L (98-107); SODIUM 134 mmol/L (136-145)
[2020-08-03 07:18] LABS: ANION GAP 7 MMOL/L (8-16); BLOOD UREA NITROGEN 63.8 mg/dL (7-18); CALCIUM 8.2 mg/dL (8.5-10.1); CO2 24 mmol/L (21-32)
[2020-08-03 07:21] LABS: IRON SERUM 80 ug/dL (50-175)
[2020-08-03 07:22] LABS: CREATININE 1.7 mg/dL (0.55-1.3)
[2020-08-03 07:23] LABS: TOTAL IRON BINDING CAPACITY 217 ug/dL (250-450)
[2020-08-03 07:26] LABS: GLUCOSE,RANDOM 413 mg/dL (74-106)
[2020-08-03] MEDS: INSULIN SLIDING SCALE (NOVOLOG) 1 VIAL SQ SCH ×4 (08:02→21:33)
[2020-08-03] MEDS ORDERED: ATORVASTATIN CA 40 MG TABLET (FP) PO ONE (08:45)
[2020-08-03] MEDS ORDERED: PANTOPRAZOLE 40 MG TABLET ONE (09:43)
[2020-08-03] MEDS: metoPROLOL SUCCINATE 25 MG TAB.SR.24H (FP) PO SCH (09:51)
[2020-08-03] MEDS ORDERED: PANTOPRAZOLE 40 MG TABLET PO SCH (10:00)
[2020-08-03] MEDS ORDERED: TAMSULOSIN HCL 0.4 MG CAP PO SCH (10:00)
[2020-08-03] MEDS ORDERED: PANTOPRAZOLE SODIUM 80 MG in SODIUM CHLORIDE 100 ML IVPB SCH (10:00)
[2020-08-03] MEDS ORDERED: ASPIRIN COATED 81 MG TABLET.EC PO SCH (10:00)
[2020-08-03] MEDS ORDERED: SODIUM CHLORIDE 1,000 ML IV SCH (15:00)
[2020-08-03] MEDS: PANTOPRAZOLE 40 MG TABLET PO SCH (21:33)
[2020-08-03] MEDS: FINASTERIDE 5 MG TABLET (FP) PO SCH (21:33)
[2020-08-04] MEDS: SODIUM CHLORIDE 1,000 ML IV SCH (06:14)
[2020-08-04] MEDS: INSULIN SLIDING SCALE (NOVOLOG) 1 VIAL SQ SCH ×3 (06:17→17:56)
[2020-08-04 07:19] LABS: BASO % 0.5 % (0-2.0); EOS % 1.6 % (0-4.5); HEMATOCRIT 22.5 % (35.4-49); HEMOGLOBIN 7.8 GM/dL (11.7-16.9); LYMPH % 9.5 % (8-40); MCHC 34.7 g/dl (32.0-35.9); MEAN CELL VOLUME 86.7 fl (80-96); MEAN PLT VOLUME 8.1 fl (7.5-11.1); MONO % 8.6 % (3.8-10.2); NEUT % 79.8 % (42.8-82.8); PLATELET COUNT 397 K/MM3 (134-434); RDW 17.5 % (11.9-15.9); WHITE BLOOD COUNT 17.3 K/mm3 (4.0-10.0)
[2020-08-04 08:21] LABS: CHLORIDE 105 mmol/L (98-107); SODIUM 135 mmol/L (136-145)
[2020-08-04 08:22] LABS: CALCIUM 7.6 mg/dL (8.5-10.1)
[2020-08-04 08:23] LABS: ALBUMIN 1.7 g/dl (3.4-5.0); ANION GAP 5 MMOL/L (8-16); CO2 25 mmol/L (21-32); GLUCOSE,RANDOM 357 mg/dL (74-106)
[2020-08-04 08:26] LABS: SGOT/AST 11 U/L (15-37); SGPT/ALT 20 U/L (13-61)
[2020-08-04 08:27] LABS: BILIRUBIN,TOTAL 0.2 mg/dL (0.2-1); TOT PROT 4.3 g/dl (6.4-8.2)
[2020-08-04 08:29] LABS: ALK PHOS 85 U/L (45-117)
[2020-08-04 08:32] LABS: BLOOD UREA NITROGEN 32.3 mg/dL (7-18)
[2020-08-04 08:45] LABS: ANISOCYTOSIS 1+; PLATELET ESTIMATE NORMAL
[2020-08-04] MEDS: TAMSULOSIN HCL 0.4 MG CAP PO SCH (10:10)
[2020-08-04] MEDS: PANTOPRAZOLE 40 MG TABLET PO SCH ×2 (10:11→21:07)
[2020-08-04] MEDS: metoPROLOL SUCCINATE 25 MG TAB.SR.24H (FP) PO SCH (10:11)
[2020-08-04 10:54] LABS: MAGNESIUM 1.9 mg/dL (1.8-2.4)
[2020-08-04] MEDS ORDERED: SODIUM CHLORIDE 1,000 ML IV SCH (12:31)
[2020-08-04] MEDS ORDERED: INSULIN SLIDING SCALE (NOVOLOG) 1 VIAL SQ SCH ×2 (17:28→17:38)
[2020-08-04] MEDS ORDERED: INSULIN (NOVOLOG) ASPART 100 UNITS/ML 10ML VIAL SQ ONE (17:50)
[2020-08-04] MEDS: ATORVASTATIN CA 40 MG TABLET (FP) PO SCH (21:07)
[2020-08-04] MEDS: POLYETHYLENE GLYCOL 3350 119 GM BTL PO SCH (21:08)
[2020-08-04] MEDS: FINASTERIDE 5 MG TABLET (FP) PO SCH (21:09)
[2020-08-04] MEDS: INSULIN (LEVEMIR) 100 UNITS/ML UNITS SQ SCH (21:27)
[2020-08-04] MEDS ORDERED: INSULIN (LEVEMIR) 100 UNITS/ML UNITS SQ SCH (22:00)
[2020-08-05] MEDS: POLYETHYLENE GLYCOL 3350 119 GM BTL PO SCH ×3 (06:26→21:31)
[2020-08-05] MEDS: INSULIN (LEVEMIR) 100 UNITS/ML UNITS SQ SCH ×2 (06:29→21:34)
[2020-08-05] MEDS: INSULIN SLIDING SCALE (NOVOLOG) 1 VIAL SQ SCH ×4 (06:31→16:28)
[2020-08-05] MEDS ORDERED: INSULIN SLIDING SCALE (NOVOLOG) 1 VIAL SQ SCH (07:00)
[2020-08-05 08:13] LABS: BASO % 0.7 % (0-2.0); EOS % 1.8 % (0-4.5); HEMATOCRIT 29.7 % (35.4-49); HEMOGLOBIN 10.1 GM/dL (11.7-16.9); LYMPH % 8.7 % (8-40); MCH 29.5 pg (25.7-33.7); MCHC 34.1 g/dl (32.0-35.9); MEAN CELL VOLUME 86.4 fl (80-96); MEAN PLT VOLUME 8.4 fl (7.5-11.1); MONO % 8.9 % (3.8-10.2); NEUT % 79.9 % (42.8-82.8); PLATELET COUNT 382 K/MM3 (134-434); RBC 3.44 M/mm3 (4.00-5.60); RDW 18.5 % (11.9-15.9); WHITE BLOOD COUNT 15.9 K/mm3 (4.0-10.0)
[2020-08-05 08:30] LABS: CHLORIDE 108 mmol/L (98-107); SODIUM 137 mmol/L (136-145)
[2020-08-05 08:34] LABS: ALBUMIN 1.7 g/dl (3.4-5.0); ANION GAP 5 MMOL/L (8-16); BLOOD UREA NITROGEN 29.4 mg/dL (7-18); CALCIUM 7.8 mg/dL (8.5-10.1); CO2 25 mmol/L (21-32)
[2020-08-05 08:37] LABS: CREATININE 1.1 mg/dL (0.55-1.3); SGOT/AST 10 U/L (15-37); SGPT/ALT 25 U/L (13-61)
[2020-08-05 08:39] LABS: BILIRUBIN,TOTAL 0.3 mg/dL (0.2-1); TOT PROT 4.5 g/dl (6.4-8.2)
[2020-08-05 08:54] LABS: ALK PHOS 154 U/L (45-117)
[2020-08-05 09:07] LABS: GLUCOSE,RANDOM 432 mg/dL (74-106)
[2020-08-05] MEDS: metoPROLOL SUCCINATE 25 MG TAB.SR.24H (FP) PO SCH (09:42)
[2020-08-05] MEDS: TAMSULOSIN HCL 0.4 MG CAP PO SCH (09:42)
[2020-08-05] MEDS: PANTOPRAZOLE 40 MG TABLET PO SCH ×2 (09:42→21:31)
[2020-08-05] MEDS ORDERED: SODIUM ZIRCONIUM CYCLOSILICATE (LOKELMA) 5 GM PACKET PO ONE (14:00)
[2020-08-05] MEDS: ATORVASTATIN CA 40 MG TABLET (FP) PO SCH (21:31)
[2020-08-05] MEDS: FINASTERIDE 5 MG TABLET (FP) PO SCH (21:31)
[2020-08-06] MEDS: POLYETHYLENE GLYCOL 3350 119 GM BTL PO SCH ×3 (05:37→21:37)
[2020-08-06] MEDS: INSULIN SLIDING SCALE (NOVOLOG) 1 VIAL SQ SCH ×3 (07:34→17:27)
[2020-08-06] MEDS: INSULIN (LEVEMIR) 100 UNITS/ML UNITS SQ SCH ×2 (07:34→21:42)
[2020-08-06 08:23] LABS: BASO % 0.8 % (0-2.0); EOS % 1.9 % (0-4.5); HEMATOCRIT 29.6 % (35.4-49); HEMOGLOBIN 10.2 GM/dL (11.7-16.9); LYMPH % 9.4 % (8-40); MCH 29.8 pg (25.7-33.7); MCHC 34.4 g/dl (32.0-35.9); MEAN CELL VOLUME 86.6 fl (80-96); MEAN PLT VOLUME 8.2 fl (7.5-11.1); MONO % 8.8 % (3.8-10.2); NEUT % 79.1 % (42.8-82.8); PLATELET COUNT 355 K/MM3 (134-434); RBC 3.41 M/mm3 (4.00-5.60); RDW 18.5 % (11.9-15.9); WHITE BLOOD COUNT 15.2 K/mm3 (4.0-10.0)
[2020-08-06 08:41] LABS: ALBUMIN 1.6 g/dl (3.4-5.0); BLOOD UREA NITROGEN 23.6 mg/dL (7-18); CALCIUM 8.1 mg/dL (8.5-10.1)
[2020-08-06 08:44] LABS: CREATININE 0.8 mg/dL (0.55-1.3)
[2020-08-06 08:45] LABS: BILIRUBIN,TOTAL 0.3 mg/dL (0.2-1); TOT PROT 4.4 g/dl (6.4-8.2)
[2020-08-06] MEDS: metoPROLOL SUCCINATE 25 MG TAB.SR.24H (FP) PO SCH (08:59)
[2020-08-06] MEDS: PANTOPRAZOLE 40 MG TABLET PO SCH ×2 (08:59→21:41)
[2020-08-06] MEDS: TAMSULOSIN HCL 0.4 MG CAP PO SCH (08:59)
[2020-08-06] MEDS ORDERED: BISACODYL 5 MG TABLET.DR (FP) PO ONE (16:00)
[2020-08-06] MEDS ORDERED: PEG 3350/NA SULF BICARB CL/KCL 4000 ML SOLN.RECON PO ONE (17:00)
[2020-08-06] MEDS: FINASTERIDE 5 MG TABLET (FP) PO SCH (21:41)
[2020-08-06] MEDS: ATORVASTATIN CA 40 MG TABLET (FP) PO SCH (21:41)
[2020-08-07] MEDS: POLYETHYLENE GLYCOL 3350 119 GM BTL PO SCH (06:12)
[2020-08-07] MEDS: INSULIN SLIDING SCALE (NOVOLOG) 1 VIAL SQ SCH ×3 (06:21→18:45)
[2020-08-07] MEDS: INSULIN (LEVEMIR) 100 UNITS/ML UNITS SQ SCH ×2 (06:21→21:20)
[2020-08-07 09:30] LABS: BASO % 0.6 % (0-2.0); EOS % 1.4 % (0-4.5); HEMATOCRIT 32.3 % (35.4-49); HEMOGLOBIN 10.7 GM/dL (11.7-16.9); LYMPH % 8.4 % (8-40); MEAN CELL VOLUME 87.8 fl (80-96); MEAN PLT VOLUME 8.4 fl (7.5-11.1); MONO % 7.5 % (3.8-10.2); NEUT % 82.1 % (42.8-82.8); PLATELET COUNT 361 K/MM3 (134-434); RBC 3.68 M/mm3 (4.00-5.60); RDW 18.8 % (11.9-15.9); WHITE BLOOD COUNT 15.9 K/mm3 (4.0-10.0)
[2020-08-07] MEDS: metoPROLOL SUCCINATE 25 MG TAB.SR.24H (FP) PO SCH ×2 (10:02→12:23)
[2020-08-07] MEDS: PANTOPRAZOLE 40 MG TABLET PO SCH (10:02)
[2020-08-07] MEDS: TAMSULOSIN HCL 0.4 MG CAP PO SCH ×2 (10:02→12:23)
[2020-08-07 10:06] LABS: ALBUMIN 1.7 g/dl (3.4-5.0); BLOOD UREA NITROGEN 15.9 mg/dL (7-18); CALCIUM 7.8 mg/dL (8.5-10.1)
[2020-08-07 10:08] LABS: CREATININE 0.8 mg/dL (0.55-1.3)
[2020-08-07 10:09] LABS: BILIRUBIN,TOTAL 0.9 mg/dL (0.2-1); PHOSPHOROUS 2.6 mg/dL (2.5-4.9)
[2020-08-07 10:10] LABS: TOT PROT 4.5 g/dl (6.4-8.2)
[2020-08-07] MEDS ORDERED: EPINEPHrine 1:10,000 (P-F SYR) 1 MG/10 ML DISP.SYRIN IVPUSH ONE (10:50)
[2020-08-07] MEDS ORDERED: EPINEPHrine 1:10,000 (P-F SYR) 1 MG/10 ML DISP.SYRIN ONE (11:22)
[2020-08-07] MEDS: MAG HYDROX/AL HYDROX/SIMETH 30 ML UNIT-DOSE CUP PO SCH ×3 (12:22→23:30)
[2020-08-07] MEDS ORDERED: IRON SUCROSE INJECTION 200 MG in SODIUM CHLORIDE 90 ML IVPB ONE (13:00)
[2020-08-07] MEDS: PANTOPRAZOLE SODIUM 80 MG in SODIUM CHLORIDE 100 ML IVPB SCH ×3 (14:48→23:34)
[2020-08-07] MEDS: ATORVASTATIN CA 40 MG TABLET (FP) PO SCH (21:19)
[2020-08-07] MEDS: FINASTERIDE 5 MG TABLET (FP) PO SCH (21:19)
[2020-08-08] MEDS: MAG HYDROX/AL HYDROX/SIMETH 30 ML UNIT-DOSE CUP PO SCH ×5 (05:59→23:47)
[2020-08-08] MEDS: INSULIN SLIDING SCALE (NOVOLOG) 1 VIAL SQ SCH ×3 (06:14→17:01)
[2020-08-08] MEDS: INSULIN (LEVEMIR) 100 UNITS/ML UNITS SQ SCH ×2 (06:14→21:16)
[2020-08-08 08:00] LABS: BASO % 0.6 % (0-2.0); EOS % 1.5 % (0-4.5); HEMATOCRIT 31.3 % (35.4-49); HEMOGLOBIN 10.5 GM/dL (11.7-16.9); LYMPH % 6.8 % (8-40); MCH 29.5 pg (25.7-33.7); MCHC 33.4 g/dl (32.0-35.9); MEAN CELL VOLUME 88.3 fl (80-96); MEAN PLT VOLUME 8.3 fl (7.5-11.1); MONO % 6.7 % (3.8-10.2); NEUT % 84.4 % (42.8-82.8); PLATELET COUNT 346 K/MM3 (134-434); RBC 3.55 M/mm3 (4.00-5.60); RDW 18.1 % (11.9-15.9); RETICULOCYTES 2.81 % (0.5-1.5); WHITE BLOOD COUNT 16.4 K/mm3 (4.0-10.0)
[2020-08-08] MEDS: TAMSULOSIN HCL 0.4 MG CAP PO SCH (08:04)
[2020-08-08 08:19] LABS: CALCIUM 8.3 mg/dL (8.5-10.1)
[2020-08-08 08:20] LABS: BLOOD UREA NITROGEN 10.4 mg/dL (7-18)
[2020-08-08 08:23] LABS: CREATININE 0.9 mg/dL (0.55-1.3)
[2020-08-08] MEDS: metoPROLOL SUCCINATE 25 MG TAB.SR.24H (FP) PO SCH (09:39)
[2020-08-08] MEDS: POLYETHYLENE GLYCOL 3350 119 GM BTL PO SCH (09:39)
[2020-08-08] MEDS: PANTOPRAZOLE SODIUM 80 MG in SODIUM CHLORIDE 100 ML IVPB SCH (10:29)
[2020-08-08] MEDS ORDERED: IRON SUCROSE INJECTION 200 MG in SODIUM CHLORIDE 90 ML IVPB ONE (15:00)
[2020-08-08] MEDS ORDERED: CEFTRIAXONE 2 GM in DEXTROSE 5%-WATER 2 GM/100 ML BAG IVPB ONE (15:40)
[2020-08-08] MEDS ORDERED: DEXTROSE 5%-WATER 100 ML IVPB ONE (16:26)
[2020-08-08] MEDS: PANTOPRAZOLE 40 MG TABLET PO SCH (21:12)
[2020-08-08] MEDS: ATORVASTATIN CA 40 MG TABLET (FP) PO SCH (21:12)
[2020-08-08] MEDS: FINASTERIDE 5 MG TABLET (FP) PO SCH (21:12)
[2020-08-09] MEDS: MAG HYDROX/AL HYDROX/SIMETH 30 ML UNIT-DOSE CUP PO SCH ×2 (06:12→11:44)
[2020-08-09] MEDS: INSULIN (LEVEMIR) 100 UNITS/ML UNITS SQ SCH (06:14)
[2020-08-09] MEDS: INSULIN SLIDING SCALE (NOVOLOG) 1 VIAL SQ SCH ×2 (06:18→11:29)
[2020-08-09] MEDS: POLYETHYLENE GLYCOL 3350 119 GM BTL PO SCH (09:25)
[2020-08-09] MEDS: metoPROLOL SUCCINATE 25 MG TAB.SR.24H (FP) PO SCH (09:25)
[2020-08-09] MEDS: TAMSULOSIN HCL 0.4 MG CAP PO SCH (09:25)
[2020-08-09] MEDS: PANTOPRAZOLE 40 MG TABLET PO SCH (09:25)
[2020-08-09 11:29] LABS: BASO % 1.1 % (0-2.0); EOS % 1.5 % (0-4.5); HEMATOCRIT 33.4 % (35.4-49); MCH 29.2 pg (25.7-33.7); MCHC 33.1 g/dl (32.0-35.9); MEAN CELL VOLUME 88.2 fl (80-96); MEAN PLT VOLUME 7.8 fl (7.5-11.1); NEUT % 77.4 % (42.8-82.8); PLATELET COUNT 355 K/MM3 (134-434); RBC 3.78 M/mm3 (4.00-5.60); RDW 17.9 % (11.9-15.9); WHITE BLOOD COUNT 15.5 K/mm3 (4.0-10.0)
[2020-08-09 11:53] LABS: BLOOD UREA NITROGEN 21.7 mg/dL (7-18); CALCIUM 8.8 mg/dL (8.5-10.1)
[2020-08-09 11:57] LABS: CREATININE 0.9 mg/dL (0.55-1.3)
[2020-08-09 11:58] LABS: BILIRUBIN,TOTAL 0.1 mg/dL (0.2-1); TOT PROT 5.6 g/dl (6.4-8.2)
[2020-08-09 12:05] LABS: ALBUMIN 2.1 g/dl (3.4-5.0)
[2020-08-09 14:07] VITALS: BP 136/82; PULSE 92; TEMP 97.9
== END 2020-08-09 15:03 | disposition home or self-care (01) | DRG 377 ==
LOC: JER 18:12 → JERBED 08-03 00:51 → J4S 08-03 17:02
PROVIDERS: ADMIT Hospitalist; ATTEND Family Medicine
PROC: 30233N1 Transfusion of Nonautologous Red Blood Cells into Peripheral Vein, Percutaneous Approach (ICD-10-PCS; 2020-08-02)
PROC: 3E0G8GC Introduction of Other Therapeutic Substance into Upper GI, Via Natural or Artificial Opening Endoscopic (ICD-10-PCS; 2020-08-07)
PROC: 0W3P8ZZ Control Bleeding in Gastrointestinal Tract, Via Natural or Artificial Opening Endoscopic (ICD-10-PCS; 2020-08-07)
PROC: 0DB78ZX Excision of Stomach, Pylorus, Via Natural or Artificial Opening Endoscopic, Diagnostic (ICD-10-PCS; principal; 2020-08-07 10:00)
DX: K26.0 Acute duodenal ulcer with hemorrhage (principal); I21.A1 Myocardial infarction type 2; E27.40 Unspecified adrenocortical insufficiency; N17.9 Acute kidney failure, unspecified; E87.1 Hypo-osmolality and hyponatremia; K21.9 Gastro-esophageal reflux disease without esophagitis; E11.65 Type 2 diabetes mellitus with hyperglycemia; D64.9 Anemia, unspecified; R91.8 Other nonspecific abnormal finding of lung field; J44.9 Chronic obstructive pulmonary disease, unspecified; E87.5 Hyperkalemia; R16.0 Hepatomegaly, not elsewhere classified; D72.829 Elevated white blood cell count, unspecified; R77.8 Other specified abnormalities of plasma proteins; I25.10 Atherosclerotic heart disease of native coronary artery without angina pectoris; I65.29 Occlusion and stenosis of unspecified carotid artery; N40.0 Benign prostatic hyperplasia without lower urinary tract symptoms; E11.51 Type 2 diabetes mellitus with diabetic peripheral angiopathy without gangrene; Z86.73 Personal history of transient ischemic attack (TIA), and cerebral infarction without residual deficits; R63.4 Abnormal weight loss; Z68.20 Body mass index [BMI] 20.0-20.9, adult
CPT/HCPCS: 36415; 36430; 36511; 70553-TC; 71046-TC-FY; 71250-TC; 76705-TC; 76775-TC; 80048; 80053; 81003; 82010; 82272; 82533; 82550; 82570; 82728; 82803; 82962; 83036; 83540; 83550; 83605; 83735; 83880; 84100; 84133; 84300; 84484; 85025; 85027; 85045; 85379; 85610; 85730; 86850; 86900; 86901; 86922; 87040; 87086; 87899; 88305-TC; 93005; 93010; 93306-TC; 99291; 99292; C9803; J1756; P9038; P9058; U0003; U0005